=== PATIENT | female | born 1935 ===

== ENCOUNTER 2024-03-22 17:03 | Emergency (ER) | payer OTHER ==
[~2024-03-22] VITALS: Ht 160 cm; Wt 55.0 kg
[2024-03-22 17:10] VITALS: PULSE 114; PULSE 116; RESP 18; O2SAT 100
[2024-03-22 17:11] VITALS: TEMP 98.8
[2024-03-22 17:30] LABS: BASOPHILS % (AUTO) 0.7 % (0.0-2.0); EOSINOPHILS % (AUTO) 0.7 % (1.0-6.0); HEMATOCRIT 34.8 % (36-46); HEMOGLOBIN 11.2 g/dL (12.0-16.0); LYMPHOCYTES % (AUTO) 23.4 % (22.0-44.0); MEAN CORPUSCULAR HEMOGLOBIN 30.6 pg (26.0-34.0); MEAN CORPUSCULAR HGB CONC 32.1 G/dL (31.0-37.0); MEAN CORPUSCULAR VOLUME 95 fL (80-100); MONOCYTES # (AUTO) 0.3 K/uL (0.1-1.0); MONOCYTES % (AUTO) 3.7 % (2.0-9.0); NEUTROPHILS % (AUTO) 71.5 % (40.0-70.0); PLATELET COUNT (AUTO) 171 K/uL (150-450); RED BLOOD CELL COUNT(AUTO) 3.65 MIL/uL (4.00-5.20); WHITE BLOOD COUNT (AUTO) 8.4 K/uL (4.5-11.0)
[2024-03-22] MEDS ORDERED: IOHEXOL 350 MG/ML 100 ML VIAL ONE (17:35)
[2024-03-22] MEDS ORDERED: SODIUM CHLORIDE 0.9% 100 ML ONE (17:35)
[2024-03-22] MEDS ORDERED: 0.9% SODIUM CHLORIDE 10 ML SYRINGE IVP ONE (17:36)
[2024-03-22 17:37] LABS: ANION GAP 9 mmol/L (8-16); CARBON DIOXIDE 28 mmol/L (22-29); CHLORIDE 105 mmol/L (98-107); CREATININE 1.97 mg/dL (0.60-1.30); GLOMERULAR FILTR. RATE CALC 24 mL/min (>60); GLUCOSE,RANDOM 177 mg/dL (70-110); POTASSIUM 4.1 mmol/L (3.5-5.1); SODIUM SERUM 142 mmol/L (136-145); UREA NITROGEN, BLOOD 36 mg/dL (7-18)
[2024-03-22 17:42] LABS: PROTHROMBIN TIME 12.4 SEC (9.4-11.6)
[2024-03-22 17:47] LABS: ALANINE AMINOTRANSFERASE 38 U/L (12-78); ALBUMIN 2.9 g/dL (3.4-5.0); ALKALINE PHOSPHATASE 74 U/L (46-116); ASPARTATE AMINOTRANSFERASE 68 U/L (15-37); BILIRUBIN,TOTAL 0.3 mg/dL (0.1-1.0); TOTAL PROTEIN, SERUM 6.4 g/dL (6.4-8.2)
[2024-03-22 17:51] LABS: TROPONIN I-HIGH SENSITIVITY 73 ng/L (<51)
[2024-03-22 18:44] VITALS: BP 36/19
[2024-03-22 19:07] VITALS: PULSE 63; RESP 18; O2SAT 93
[2024-03-22 19:27] VITALS: PULSE 58; RESP 18; O2SAT 100
== END 2024-03-22 22:30 ==
LOC: EMS 17:03
DX: I61.9 Nontraumatic intracerebral hemorrhage, unspecified (principal); I63.9 Cerebral infarction, unspecified; R06.81 Apnea, not elsewhere classified; I10 Essential (primary) hypertension
CPT/HCPCS: 99291; 70496; 31500; 71045; 80053; 84484; 85025; 85610; 85730; 86850; 86900; 86901; 36415; 70498; 82962; 99292; 93005; 70450; Q9967; J7050; 82948; 94002